=== PATIENT | male | born 1960 | race Caucasian/White ===

== ENCOUNTER 2016-11-19 13:00 | Day surgery (SDC) | payer OTHER ==
[~2016-11-19 13:00] MED LIST: Buffered Lidocaine 0.9% SYRIN* 5 ML/SYR SYRINGE INTRADERM ONE
[2016-11-19] MEDS ORDERED: Clindamycin 900 MG IVPREMIX(* 900 MG/50 ML SDV IV ONE (13:13)
[2016-11-19] MEDS ORDERED: Bupivacaine 0.25% SDV* 30 ML ONE (14:38)
[2016-11-19] MEDS ORDERED: Midazolam* 1 MG/ML 2 ML VIAL (2 MG) ONE (14:44)
[2016-11-19] MEDS ORDERED: fentaNYL* 50 MCG/ML 2 ML VIAL (100 MCG VIAL) ONE (14:44)
[2016-11-19] MEDS ORDERED: Propofol* 10 MG/ML 20 ML BTL IV PUSH ONE (14:46)
[2016-11-19 15:53] VITALS: BP 135/77
== END 2016-11-19 15:50 | disposition home or self-care (01) ==
LOC: OREAST 13:00
PROVIDERS: ATTEND Plastic Surgery
DX: G56.02 Carpal tunnel syndrome, left upper limb (principal); Z88.1 Allergy status to other antibiotic agents; Z87.891 Personal history of nicotine dependence
CPT/HCPCS: J2250; J2704; J3010

== ENCOUNTER 2016-12-03 09:11 | Day surgery (SDC) | payer OTHER ==
[~2016-12-03 09:11] MED LIST changes: +Famotidine IV* 10 MG/ML 2 ML (20 mg) IV ONE; +Metoclopramide TAB* 10 MG PO ONE
[2016-12-03] MEDS ORDERED: Buffered Lidocaine 0.9% SYRIN* 5 ML/SYR SYRINGE ONE (09:18)
[2016-12-03] MEDS ORDERED: Famotidine IV* 10 MG/ML 2 ML (20 mg) ONE (09:18)
[2016-12-03] MEDS ORDERED: Clindamycin 900 MG IVPREMIX(* 900 MG/50 ML SDV IV ONE (09:18)
[2016-12-03] MEDS ORDERED: Metoclopramide IV* 5 MG/ML 2 ML VIAL ONE (09:18)
[2016-12-03] MEDS ORDERED: Metoclopramide TAB* 10 MG ONE (09:45)
[2016-12-03] MEDS ORDERED: Midazolam* 1 MG/ML 5 ML VIAL (5 MG) ONE (10:22)
[2016-12-03] MEDS ORDERED: Ondansetron INJ* 2 MG/ML VIAL ONE (10:22)
[2016-12-03] MEDS ORDERED: Lidocaine 2% PF * 5 ML VIAL ONE (10:22)
[2016-12-03] MEDS ORDERED: Propofol* 10 MG/ML 20 ML BTL IV PUSH ONE (10:22)
[2016-12-03] MEDS ORDERED: fentaNYL* 50 MCG/ML 2 ML VIAL (100 MCG VIAL) ONE (10:22)
[2016-12-03] MEDS ORDERED: Bupivacaine 0.25% SDV* 30 ML ONE (11:07)
[2016-12-03] MEDS ORDERED: HYDROcodone/ACETAMIN 5-325 MG* 1 TAB PO PRN (11:40)
[2016-12-03] MEDS ORDERED: DiMENhydriNATE IV* 50 MG/ML VIAL IV PUSH PRN (11:40)
[2016-12-03 12:17] VITALS: BP 141/87
== END 2016-12-03 12:32 | disposition home or self-care (01) ==
LOC: OR 09:11
PROVIDERS: ATTEND Plastic Surgery
DX: G56.01 Carpal tunnel syndrome, right upper limb (principal); R01.1 Cardiac murmur, unspecified; K21.9 Gastro-esophageal reflux disease without esophagitis; M19.90 Unspecified osteoarthritis, unspecified site
CPT/HCPCS: A9270-GY; J2250; J2405; J2704; J2765; J3010

== ENCOUNTER 2020-12-12 13:29 | Inpatient (IN) ==
[~2020-12-12 13:29] MED LIST changes: -Buffered Lidocaine 0.9% SYRIN* 5 ML/SYR SYRINGE INTRADERM ONE; +Buffered Lidocaine 1% SYRIN 1 ml INTRADERM ONE; -Famotidine IV* 10 MG/ML 2 ML (20 mg) IV ONE; +Lactated Ringers 1000 ml BAG 1,000 ML IV SCH; -Metoclopramide TAB* 10 MG PO ONE
[2020-12-12] MEDS ORDERED: Clindamycin 900 MG/D5W BAG 900 MG/50 ML BAG IVPB ONE (14:00)
[2020-12-12] MEDS ORDERED: fentaNYL 250 mcg/5 ml 50 MCG/ML 5 ml VIAL (250 MCG) ONE (15:26)
[2020-12-12] MEDS ORDERED: Midazolam 2 mg/2 ml VIAL 1 mg/ml 2 ml VIAL (2 mg) ONE (15:26)
[2020-12-12] MEDS ORDERED: Ondansetron 4 mg VIAL 2 MG/ML 2 ml VIAL ONE ×2 (15:27→19:57)
[2020-12-12] MEDS ORDERED: Lidocaine 2% PF 5 ML VIAL ONE (15:27)
[2020-12-12] MEDS ORDERED: Rocuronium 50 mg VIAL 10 mg/ml 5 ml VIAL (50 mg) ONE ×2 (15:27→18:48)
[2020-12-12] MEDS ORDERED: Dexamethasone IV 4 MG/ML VIAL 1 ml VIAL ONE (15:27)
[2020-12-12] MEDS ORDERED: Phenylephrine IV 10 MG/ML 1 ml VIAL ONE (16:22)
[2020-12-12] MEDS ORDERED: Bupivacaine 0.5% SDV PF 30ML VIAL ONE (17:39)
[2020-12-12] MEDS ORDERED: Sugammadex 500 MG/5 ML 5 ml VIAL IV PUSH ONE (19:17)
[2020-12-12] MEDS ORDERED: fentaNYL 100 mcg/2 ml 50 MCG/ML VIAL IV PRN (19:19)
[2020-12-12] MEDS ORDERED: Acetaminophen IV 1 GM/100ML 100 ML IV PRN (19:19)
[2020-12-12] MEDS ORDERED: HYDROmorphone 1 MG/1 ML SYRINGE IV PRN (19:19)
[2020-12-12] MEDS ORDERED: Naloxone 0.4 mg VIAL 0.4 mg/ml 1 ml VIAL IV PRN (19:19)
[2020-12-12] MEDS ORDERED: Ondansetron 4 mg VIAL 2 MG/ML 2 ml VIAL IV PRN ×2 (19:19→19:45)
[2020-12-12] MEDS ORDERED: DiMENhydriNATE IV 50 mg/ml 1 ml VIAL IV PUSH PRN (19:19)
[2020-12-12] MEDS ORDERED: diPHENhydraMINE IV 50 MG/ML 1 ml VIAL (BENADRYL) IV PRN (19:45)
[2020-12-12] MEDS ORDERED: diPHENhydraMINE 25 mg TAB PO PRN (19:45)
[2020-12-12] MEDS ORDERED: Magnesium Hydroxide LIQ 30 ML UDC PO PRN (19:45)
[2020-12-12] MEDS ORDERED: Ondansetron ODT 4 mg TAB 4 MG TAB PO PRN (19:45)
[2020-12-12] MEDS ORDERED: Lactulose 30 ml UDC PO PRN (19:45)
[2020-12-12] MEDS ORDERED: Morphine 2 MG/ML SYRINGE IV PRN (19:52)
[2020-12-12] MEDS ORDERED: Acetaminophen IV 1 GM/100ML 100 ML IV ONE (19:55)
[2020-12-12] MEDS ORDERED: Piperacillin/Tazobac ADVAN 3.375 GM in NS 0.9% 100 ml BAG 100 ML IV ONE (19:56)
[2020-12-12] MEDS ORDERED: Zosyn per Pharmacy NOTE FOLLOW UP SCH (20:00)
[2020-12-12] MEDS ORDERED: Vancomycin per Pharmacy 1 EA NOTE FOLLOW UP SCH (20:00)
[2020-12-12] MEDS ORDERED: Lactated Ringers 1000 ml BAG 1,000 ML IV SCH (20:00)
[2020-12-12] MEDS ORDERED: DiMENhydriNATE IV 50 mg/ml 1 ml VIAL ONE (20:19)
[2020-12-12] MEDS ORDERED: Vancomycin 1,500 MG in NS 0.9% 250 ml 250 ML IVPB ONE (20:30)
[2020-12-12] MEDS: Magnesium Hydroxide LIQ 30 ML UDC PO SCH (22:09)
[2020-12-12 23:53] LABS: EGFR African American 85.9 (>60)
[2020-12-13] MEDS: ZOSYN 3.375 GM Q8H per EXTENDED INFUSION IV SCH ×2 (01:03→09:30)
[2020-12-13] MEDS: Vancomycin 1000 MG in NS 0.9% 250 ML IVPB SCH ×3 (06:32→22:35)
[2020-12-13] MEDS: Vitamin THERAPEUTIC TAB PO SCH (09:32)
[2020-12-13] MEDS: Magnesium Hydroxide LIQ 30 ML UDC PO SCH ×2 (09:33→20:01)
[2020-12-13 10:42] LABS: ABS Lymphocytes 1.4 10^3/ul (1.0-4.8); ABS Monocytes 0.3 10^3/ul (0-0.8); ABS Neutrophils 7.7 10^3/ul (1.5-7.7); Hematocrit 36 % (42-52); Hemoglobin 11.9 g/dL (14.0-18.0); Mean Corpuscular HGB Conc 33 g/dL (31-36); Mean Corpuscular Hemoglobin 31 pg (27-31); Mean Corpuscular Volume 92 fL (80-94); Mean Platelet Volume 7.9 fL (7.4-10.4); Platelet Count 376 10^3/uL (150-450); Red Blood Count 3.87 10^6 /uL (4.18-5.48); Red Cell Distribution Width 15 % (10-15); White Blood Count 9.5 10^3/uL (3.5-10.8)
[2020-12-13 11:14] LABS: C Reactive Protein 11.8 mg/L (<8.01); Calcium 8.7 mg/dL (8.6-10.3); EGFR African American 96.2 (>60); EGFR Non-African American 79.5 (>60); Potassium 4.2 mmol/L (3.5-5.0)
[2020-12-13] MEDS: cefTRIAXone 2 GM ADDV.VIAL 2 GM in NS 0.9% 100 ml BAG 100 ML IV SCH (17:40)
[2020-12-14] MEDS ORDERED: Vancomycin Trough Check NOTE FOLLOW UP ONE (06:00)
[2020-12-14 06:14] LABS: EGFR African American 109.1 (>60); EGFR Non-African American 90.1 (>60); Vancomycin Trough 16.1 mcg/mL
[2020-12-14] MEDS: Vancomycin 1000 MG in NS 0.9% 250 ML IVPB SCH ×3 (06:38→22:33)
[2020-12-14] MEDS: Vitamin THERAPEUTIC TAB PO SCH (09:20)
[2020-12-14] MEDS: Magnesium Hydroxide LIQ 30 ML UDC PO SCH ×2 (09:21→22:33)
[2020-12-14] MEDS: cefTRIAXone 2 GM ADDV.VIAL 2 GM in NS 0.9% 100 ml BAG 100 ML IV SCH (18:16)
[2020-12-15] MEDS: Vancomycin 1000 MG in NS 0.9% 250 ML IVPB SCH ×3 (06:02→22:52)
[2020-12-15] MEDS: Magnesium Hydroxide LIQ 30 ML UDC PO SCH ×2 (08:37→20:15)
[2020-12-15] MEDS: Vitamin THERAPEUTIC TAB PO SCH (08:39)
[2020-12-15] MEDS: cefTRIAXone 2 GM ADDV.VIAL 2 GM in NS 0.9% 100 ml BAG 100 ML IV SCH (18:19)
[2020-12-16] MEDS: Vancomycin 1000 MG in NS 0.9% 250 ML IVPB SCH ×3 (06:22→23:06)
[2020-12-16 07:16] LABS: ABS Eosinophils 0.2 10^3/ul (0-0.6); ABS Lymphocytes 2.5 10^3/ul (1.0-4.8); ABS Monocytes 1.1 10^3/ul (0-0.8); Eosinophil % 2.1 %; Hematocrit 33 % (42-52); Hemoglobin 11.3 g/dL (14.0-18.0); Lymphocyte % 31.9 %; Mean Corpuscular HGB Conc 34 g/dL (31-36); Mean Corpuscular Hemoglobin 31 pg (27-31); Mean Corpuscular Volume 92 fL (80-94); Mean Platelet Volume 7.8 fL (7.4-10.4); Platelet Count 295 10^3/uL (150-450); Red Blood Count 3.62 10^6 /uL (4.18-5.48); Red Cell Distribution Width 15 % (10-15); White Blood Count 7.8 10^3/uL (3.5-10.8)
[2020-12-16 07:38] LABS: CRP High Sensitivity 40.6 mg/L (<2.00); Calcium 8.6 mg/dL (8.6-10.3); EGFR African American 137.9 (>60); Potassium 4.2 mmol/L (3.5-5.0)
[2020-12-16 08:13] LABS: C Reactive Protein 45.36 mg/L (<8.01)
[2020-12-16] MEDS: Magnesium Hydroxide LIQ 30 ML UDC PO SCH ×2 (08:39→20:13)
[2020-12-16] MEDS: Vitamin THERAPEUTIC TAB PO SCH (08:43)
[2020-12-17] MEDS ORDERED: Vancomycin Trough Check NOTE FOLLOW UP ONE (06:00)
[2020-12-17 06:47] LABS: EGFR African American 127.5 (>60); EGFR Non-African American 105.3 (>60)
[2020-12-17 06:59] LABS: Vancomycin Trough 15.3 mcg/mL
[2020-12-17] MEDS: Vancomycin 1000 MG in NS 0.9% 250 ML IVPB SCH (07:33)
[2020-12-17] MEDS: Magnesium Hydroxide LIQ 30 ML UDC PO SCH (07:34)
[2020-12-17] MEDS: Vitamin THERAPEUTIC TAB PO SCH (07:34)
[2020-12-17 11:42] VITALS: BP 104/84
[2020-12-20] MEDS ORDERED: Vancomycin Trough Check NOTE FOLLOW UP ONE (06:00)
== END 2020-12-17 13:35 | disposition home or self-care (01) | DRG 315 ==
LOC: OR 13:29 → SSU 19:58
PROVIDERS: ADMIT Orthopaedic Surgery Hand Surgery; ATTEND Orthopaedic Surgery Hand Surgery

== ENCOUNTER 2023-09-21 00:35 | Inpatient (IN) ==
[2023-09-21 01:15] LABS: ABS Basophils 0.1 10^3/uL (0.0-0.1); ABS Eosinophils 0.4 10^3/uL (0.0-0.5); ABS Lymphocytes 2.8 10^3/uL (1.0-4.8); ABS Monocytes 1.1 10^3/uL (0.0-1.1); ABS Neutrophils 4.1 10^3/uL (1.5-7.6); Eosinophil % 4.3 %; Hematocrit 39.4 % (38-53); Hemoglobin 13.4 g/dL (13.2-16.3); Lymphocyte % 33.1 %; Mean Corpuscular Hemoglobin 31.5 pg (27-33); Mean Corpuscular Hgb Conc 34.1 g/dL (31-36); Mean Corpuscular Volume 92.4 fL (80-97); Mean Platelet Volume 8.5 fL (7.5-11.2); Platelet Count 259 10^3/uL (150-450); Red Blood Count 4.26 10^6/uL (4.06-5.63); Red Cell Distribution Width 14.4 % (12-17); White Blood Count 8.5 10^3/uL (3.6-10.2)
[2023-09-21 01:51] LABS: Albumin 3.9 g/dL (3.2-5.2); Albumin/Globulin Ratio 1.1 (1-3); Creatinine, Serum 1.16 mg/dL (0.67-1.17); Globulin 3.7 g/dL (2-4); Potassium 4.5 mmol/L (3.5-5.0); Total Bilirubin 0.4 mg/dL (0.2-1.0); Total Protein 7.6 g/dL (6.4-8.9); eGFR CKD-EPI 72.1 (>60)
[2023-09-21 02:31] LABS: INR 1.11 (0.83-1.13)
[2023-09-21 02:48] LABS: High Sensitivity Troponin 1 Hr 414 pg/mL (<20)
[2023-09-21] MEDS ORDERED: Polyethylene Glycol 3350 17 GM PACKET PO PRN (04:28)
[2023-09-21] MEDS ORDERED: Ondansetron 4 mg VIAL 2 MG/ML 2 ml VIAL IV PRN (04:28)
[2023-09-21] MEDS ORDERED: Morphine 2 MG/ML SYRINGE IV PRN (05:24)
[2023-09-21] MEDS: Nitroglycerin 0.6 mg TAB SL PRN (05:33)
[2023-09-21] MEDS: Heparin 5000 UNITS/ML 1 mL VIAL IV SCH (05:33)
[2023-09-21] MEDS: Heparin DRIP 25,000 UNITS BAG 25,000 UNITS/250 ML BAG IV SCH (05:38)
[2023-09-21 05:47] LABS: HDL Cholesterol 47.3 mg/dL
[2023-09-21] MEDS: NS 0.9% 1000 ml BAG 1,000 ML IV SCH ×2 (06:45→10:45)
[2023-09-21] MEDS ORDERED: Heparin 1,000 UNIT/ML 10 ml (10,000 UNITS) CATHLAB/DIALYSIS ONE ×2 (08:21→08:22)
[2023-09-21] MEDS ORDERED: VERAPAMIL 2.5 MG/ML 2 ML VIAL ** 5 mg/2 ml ONE (08:21)
[2023-09-21] MEDS ORDERED: Iohexol 350 (CONTRAST) 200 ML MDV IV ONE (08:22)
[2023-09-21] MEDS ORDERED: Heparin 2 UNITS/ML 1000 mls 2,000 ML IV ONE (08:22)
[2023-09-21] MEDS ORDERED: nitroGLYCERIN DRIP 25,000 MCG/250 ML BTL ONE (08:22)
[2023-09-21] MEDS ORDERED: Lidocaine 1% MPF 5 ML VIAL ONE (08:22)
[2023-09-21] MEDS: Sulfur Hexaflouride MICROSPHR 25 MG VIAL IV ONE (08:33)
[2023-09-21] MEDS ORDERED: fentaNYL 100 mcg/2 ml 50 MCG/ML VIAL ONE ×2 (08:35→09:47)
[2023-09-21] MEDS ORDERED: Midazolam 5 mg/5 ml VIAL 1 mg/ml 5 ml VIAL (5 mg) ONE (08:35)
[2023-09-21] MEDS: fentaNYL 100 mcg/2 ml 50 MCG/ML VIAL IV SLOW PU ONE (08:52)
[2023-09-21] MEDS: Midazolam 10 mg/10 ml VIAL 1 mg/ml 10 ml VIAL (10 mg) IV SLOW PU ONE (08:52)
[2023-09-21] MEDS ORDERED: Heparin 2 UNITS/ML 1000 mls 1,000 ML IV ONE (09:14)
[2023-09-21] MEDS ORDERED: niCARdipine 0.1MG/ML IVPREMIX 20 MG/200 ML BAG IV ONE (09:20)
[2023-09-21] MEDS ORDERED: Iohexol 350 (CONTRAST) 100 ML PAK IV ONE (09:54)
[2023-09-21] MEDS: Acetaminophen IV 1 GM/100ML 1,000 MG/100 ML BAG IV ONE (13:55)
[2023-09-22 06:01] LABS: ABS Eosinophils 0.2 10^3/uL (0.0-0.5); ABS Lymphocytes 2.1 10^3/uL (1.0-4.8); ABS Monocytes 1.2 10^3/uL (0.0-1.1); ABS Nucleated RBC 0.01 10^3/ul; Eosinophil % 2.8 %; Hematocrit 38.9 % (38-53); Hemoglobin 13.2 g/dL (13.2-16.3); Lymphocyte % 24.7 %; Mean Corpuscular Hemoglobin 31.6 pg (27-33); Mean Corpuscular Hgb Conc 33.9 g/dL (31-36); Mean Corpuscular Volume 93.2 fL (80-97); Mean Platelet Volume 8.4 fL (7.5-11.2); Nucleated Red Blood Cells % 0.1 %/100WBC (0.0-0.8); Platelet Count 257 10^3/uL (150-450); Red Blood Count 4.18 10^6/uL (4.06-5.63); Red Cell Distribution Width 14.6 % (12-17); White Blood Count 8.6 10^3/uL (3.6-10.2)
[2023-09-22 06:22] LABS: Calcium 8.1 mg/dL (8.6-10.3); Creatinine, Serum 0.84 mg/dL (0.67-1.17); Potassium 4.3 mmol/L (3.5-5.0); eGFR CKD-EPI 99.8 (>60)
[2023-09-22 12:46] VITALS: BP 147/72
[2023-09-23] MEDS ORDERED: Empagliflozin 25 MG TAB PO SCH (09:00)
== END 2023-09-22 14:55 | disposition home or self-care (01) | DRG 322 ==
LOC: ED 00:35 → SUATTDRO 04:28 → EDHOLD 04:28 → ICU 10:20
PROVIDERS: ADMIT Internal Medicine; ATTEND Internal Medicine Critical Care Medicine